=== PATIENT | male | born 1960 | race Caucasian/White ===

== ENCOUNTER 2017-09-03 21:50 | Emergency (ER) | payer SELFPAY ==
[~2017-09-03] VITALS: Ht 172.7 cm; Wt 83.3 kg
[2017-09-03 21:56] VITALS: Ht 172.7 cm; Wt 83.3 kg
[2017-09-03] MEDS ORDERED: SOD CHLORIDE 0.9% 500 ML IV STA (23:00)
[2017-09-03] MEDS ORDERED: morphine 4 MG/ML VIAL IV STA (23:00)
[2017-09-03] MEDS ORDERED: ONDANSETRON 4 MG INJ IV STA (23:00)
[2017-09-03 23:26] LABS: BASOPHIL # 0.1 10^3/ul (0.0-0.1); BASOPHILS % 0.4 % (0.0-2.0); EOSINOPHILS # 0.3 10^3/ul (0.0-0.5); HEMATOCRIT 47.1 % (42.0-52.0); HEMOGLOBIN 16.2 g/dl (14.0-18.0); LYMPHOCYTES # 2.8 10^3/ul (0.8-2.9); LYMPHOCYTES % 22.4 % (15.0-51.0); MEAN CORPUSCULAR HGB CONC 34.4 g/dl (32.0-37.0); MEAN CORPUSCULAR VOLUME 92.9 fl (82.0-101.0); MEAN PLATELET VOLUME 10.5 fl (7.4-10.4); MONOCYTE # 0.9 10^3/ul (0.3-0.9); MONOCYTES % 7.2 % (0.0-11.0); NEUTROPHIL # 8.4 10^3/ul (1.6-7.5); NEUTROPHILS % 67.7 % (39.0-77.0); PLATELET COUNT 264 10^3/UL (140-415); RED BLOOD COUNT 5.07 10^6/ul (4.70-6.10); RED CELL DISTRIBUTION WIDTH 12.8 % (11.5-14.5); WHITE BLOOD COUNT 12.4 10^3/ul (4.8-10.8)
[2017-09-03 23:33] LABS: ADD UMIC YES; UR ASCORBIC ACID NEGATIVE (NEGATIVE); UR BILIRUBIN (Dip) NEGATIVE (NEGATIVE); UR BLOOD (Dip) 3+ mg/dL (NEGATIVE); UR CLARITY CLEAR (CLEAR); UR COLOR YELLOW (YELLOW); UR GLUCOSE (Dip) NEGATIVE (NEGATIVE); UR KETONES (Dip) NEGATIVE (NEGATIVE); UR LEUKOCYTE ESTERASE (Dip) NEGATIVE Leu/ul (NEGATIVE); UR NITRITE (Dip) NEGATIVE (NEGATIVE); UR RBC 35 /HPF (0-5); UR SPECIFIC GRAVITY (Dip) 1.011 (1.003-1.030); UR TOTAL PROTEIN (Dip) NEGATIVE (NEGATIVE); UR UROBILINOGEN (Dip) NEGATIVE (NEGATIVE)
[2017-09-03 23:48] LABS: ALANINE AMINOTRANSFERASE 55 IU/L (13-69); ALBUMIN 4.5 g/dl (3.3-4.9); ALBUMIN/GLOBULIN RATIO 1.15; ALKALINE PHOSPHATASE 112 IU/L (42-121); ANION GAP 16 (8-16); ASPARTATE AMINO TRANSFERASE 34 IU/L (15-46); BILIRUBIN,INDIRECT 0.6 mg/dl (0-1.1); BILIRUBIN,TOTAL 0.6 mg/dl (0.2-1.3); BLOOD UREA NITROGEN 15 mg/dl (7-20); CALCIUM 9.6 mg/dl (8.4-10.2); CARBON DIOXIDE 24 mmol/L (21-31); CHLORIDE 103 mmol/L (97-110); CREATININE 0.89 mg/dl (0.61-1.24); GLUCOSE 131 mg/dl (70-220); POTASSIUM 4.1 mmol/L (3.5-5.1); SODIUM 139 mmol/L (135-144); TOTAL PROTEIN 8.4 g/dl (6.1-8.1)
--- NOTE | 2017-09-04 00:02 | RADRPT ---
PROCEDURE: CT Abdomen and Pelvis without contrast. CLINICAL INDICATION: Abdominal pain. TECHNIQUE: CT scan of the abdomen and pelvis without contrast was performed on a multidetector hig h-resolution CT scanner. The patient was scanned without intravenous contrast. Coronal and sagittal reformatted images were obtained from the axial source images. Images were reviewed on a high-resol [employer] PACS workstation. The total exam CTDI equals 12.34 mGy and the total exam DLP equals 740.88 mG y-cm. DICOM images are available. One or more of the following dose reduction techniques were utilized: 1.) Automated exposure control 2.) Adjustment of the mA +/- kV according to patient's size 3.) Use of iterative reconstruction technique. COMPARISON: None. FINDINGS: CT abdomen: The lung bases are clear. The heart size is normal, without pericardial thickening or effusion. The liver is normal in size and density without focal mass or intrahepatic biliary dilatation. The spleen is normal in size and homogeneous in density. The stomach is partially collapsed, but is wolf ssly unremarkable. The pancreas as visualized is normal. The gallbladder and biliary tree are unre markable and there is no evidence for biliary dilatation. The adrenal glands are symmetric and norm al. The kidneys are symmetrically unremarkable as well. No renal calculus or obstructive uropathy or mass lesion is seen. The aorta is of normal caliber. Aortic vascular calcifications are proximal and very mild. There i s no retroperitoneal lymphadenopathy. The tramaine hepatis region is clear. Mild scattered diverticul a. Otherwise, the bowel and mesentery, as visualized, are equally unremarkable. CT pelvis: Mild solid stool in the distal and terminal ileum compatible with nonspecific mild small bowel motil ity disorder. The pelvic organs are otherwise normal. The pelvic sidewalls and inguinal regions are clear. The sigmoid colon and rectum are remarkable for sigmoid diverticulosis. No mass, lymphaden opathy, or free fluid is seen. No acute inflammation is seen. The appendix is unremarkable. The surrounding osseous structures are remarkable for degenerative spondylosis of the spine. No ost eolytic or osteoblastic lesion is detected. IMPRESSION: 1. The appendix is unremarkable. 2. No evident obstructive uropathy. 3. Mild solid stool in the distal and terminal ileum compatible with nonspecific mild small bowel no karen disorder. 4. Otherwise, no evident acute process in the abdomen or pelvis. RPTAT: [facility] Denisha Reed Physician Date Time Electronically viewed and signed by Denisha Reed Physician on 09/04/2017 00:02 RS/
[2017-09-04 00:04] LABS: TROPONIN-I < 0.012 ng/ml (0.00-0.12)
--- NOTE | 2017-09-04 00:19 | RADRPT ---
PROCEDURE: XR Chest. CLINICAL INDICATION: Abdominal pain. TECHNIQUE: Single frontal view of the chest. COMPARISON: None. FINDINGS: The cardiomediastinal silhouette is within normal limits. Atherosclerotic calcifications in the thor acic aorta. The lungs are clear. No signs of pleural fluid or pneumothorax are seen. The osseous str uctures and soft tissues are unremarkable. IMPRESSION: No evidence for active cardiopulmonary disease. RPTAT: [facility] Physician Alyssa Date Time Electronically viewed and signed by Physician Alyssa on 09/04/2017 00:19 RS/
--- NOTE | 2017-09-04 01:22 | ERD ---
ER Documentation Chief Complaint Chief Complaint left sided abd pain x 2 days HPI This is a 48-year-old male with complaints of left-sided abdominal pain for the past 2 days. No nausea no vomiting no chills. Pain is mild to moderate intensity. No exacerbating limiting factors. No other current complaints ROS All systems reviewed and are negative except as per history of present illness. Allergies Allergies: Coded Allergies: No Known Allergy (Unverified , 09/03/17) PMhx/Soc Medical and Surgical Hx: pt denies Medical Hx, pt denies Surgical Hx Hx Alcohol Use: Yes (QUIT DRINKING X 1MONTH) Hx Substance Use: No Hx Tobacco Use: No Smoking Status: Never smoker Physical Exam Vitals Vital Signs Date Time Temp Pulse Resp B/P Pulse Ox O2 Delivery O2 Flow Rate FiO2 09/03/17 23:59 84 18 162/93 92 09/03/17 21:56 98.5 88 20 191/108 98 Physical Exam Const: [] Head: Atraumatic Eyes: Normal Conjunctiva ENT: Normal External Ears, Nose and Mouth. Neck: Full range of motion..~ No meningismus. Resp: Clear to auscultation bilaterally Cardio: Regular rate and rhythm, no murmurs Abd: Soft, non tender, non distended. Normal bowel sounds Skin: No petechiae or rashes Back: No midline or flank tenderness Ext: No cyanosis, or edema Neur: Awake and alert Psych: Normal Mood and Affect Result Diagram: 09/03/17 2300 09/03/17 2300 Results 24 hrs Laboratory Tests Test 09/03/17 22:50 09/03/17 23:00 Urine Color YELLOW Urine Clarity CLEAR Urine pH 6.0 Urine Specific Ewen 1.011 Urine Ketones NEGATIVEmg/dL Urine Nitrite NEGATIVEmg/dL Urine Bilirubin NEGATIVEmg/dL Urine Urobilinogen NEGATIVEmg/dL Urine Leukocyte Esterase NEGATIVELeu/ul Urine Microscopic RBC 35/HPF Urine Microscopic WBC 2/HPF Urine Hemoglobin 3+mg/dL Urine Glucose NEGATIVEmg/dL Urine Total Protein NEGATIVEmg/dl White Blood Count 12.410^3/ul Red Blood Count 5.0710^6/ul Hemoglobin 16.2g/dl Hematocrit 47.1% Mean Corpuscular Volume 92.9fl Mean Corpuscular Hemoglobin 32.0pg Mean Corpuscular Hemoglobin Concent 34.4g/dl Red Cell Distribution Width 12.8% Platelet Count 81903^3/UL Mean Platelet Volume 10.5fl Neutrophils % 67.7% Lymphocytes % 22.4% Monocytes % 7.2% Eosinophils % 2.0% Basophils % 0.4% Nucleated Red Blood Cells % 0.0/100WBC Neutrophils # 8.410^3/ul Lymphocytes # 2.810^3/ul Monocytes # 0.910^3/ul Eosinophils # 0.310^3/ul Basophils # 0.110^3/ul Nucleated Red Blood Cells # 0.010^3/ul Sodium Level 139mmol/L Potassium Level 4.1mmol/L Chloride Level 103mmol/L Carbon Dioxide Level 24mmol/L Anion Gap 16 Blood Urea Nitrogen 15mg/dl Creatinine 0.89mg/dl Glucose Level 131mg/dl Calcium Level 9.6mg/dl Total Bilirubin 0.6mg/dl Direct Bilirubin 0.00mg/dl Indirect Bilirubin 0.6mg/dl Aspartate Amino Transf (AST/SGOT) 34IU/L Alanine Aminotransferase (ALT/SGPT) 55IU/L Alkaline Phosphatase 112IU/L Troponin I < 0.012ng/ml Total Protein 8.4g/dl Albumin 4.5g/dl Globulin 3.90g/dl Albumin/Globulin Ratio 1.15 Lipase 118U/L Current Medications Medications (Trade) Dose Ordered Sig/Jude Route PRN Reason Start Time Stop Time Status Last Admin Dose Admin Sodium Chloride (NS) 500 ml @ 500 mls/hr Q1H STAT IV 09/03/17 23:00 09/03/17 23:59 DC 09/03/17 23:59 Morphine Sulfate (morphine) 4 mg ONCE STAT IV 09/03/17 23:00 09/03/17 23:01 DC 09/03/17 23:58 Ondansetron HCl (Zofran Inj) 4 mg ONCE STAT IV 09/03/17 23:00 09/03/17 23:01 DC 09/03/17 23:58 Procedures/MDM EKG: Rate/Rhythm: [Normal Sinus Rhythm] QRS, ST, T-waves: [No changes consistent w/ acute ischemia] Impression: [No evidence of ischemia or arrhythmia] Chest X-ray 1V Interpreted by me: Soft Tissue: No acute abnormalities Bones: No acute abnormalities Mediastinum/Cardiac Silhouette/Lungs: [No acute abnormalities] Medical decision-making: This is a very fit pleasant 48-year-old male who has a mild motility disorder. He will be discharged home with Colace along with Cipro and Flagyl. He is to return 8 hours for serial abdominal exams otherwise follow-up with PCP. Departure Diagnosis: Primary Impression: Abdominal pain Abdominal location: generalized Qualified Code: R10.84 - Generalized abdominal pain Condition: Stable BARBARA KING Sep 04, 2017 01:22
[2017-09-04] MEDS ORDERED: DOCU-144 PO (01:24)
[2017-09-04] MEDS ORDERED: METR500T PO (01:24)
[2017-09-04] MEDS ORDERED: CIPR500T4 PO (01:24)
[2017-09-04 01:46] VITALS: BP 138/85; PULSE 82; RESP 20
== END 2017-09-04 01:46 | disposition home or self-care (01) ==
LOC: E/R 21:50
DX: R10.84 Generalized abdominal pain (principal)
CPT/HCPCS: 36415; 71010; 74176; 80053; 81001; 83690; 84484; 85025; 93005; 96374; 96375; 99285; J2270; J2405; J7040